=== PATIENT | male | born 1940 | race African-American/Black ===

== ENCOUNTER 2018-05-05 17:57 | Inpatient (IN) ==
[2018-05-05] MEDS ORDERED: SODIUM CHLORIDE 0.9% 1,000 ML IV STA ×2 (19:11→20:23)
[2018-05-05 19:19] LABS: Basophils % 0.2 % (0.0-0.8); Hematocrit 35.7 VOL% (42.0-52.0); Hemoglobin 12.3 GM/DL (14.0-18.0); Immature Granulocytes % 1.1 %; Immature Granulocytes Absolute 0.22 #; Lymphocytes # 0.3 10*3/uL (1.4-4.0); Lymphocytes % 1.6 % (21.2-54.2); Mean Corpuscular HGB Conc 34.5 GM/DL (32-36); Mean Corpuscular Hemoglobin 31 PG (27-34); Mean Corpuscular Volume 89.9 FL (87-102); Mean Platelet Volume 8.8 FL (9.6-12.0); Monocytes # 1.1 10*3/uL (0.11-0.8); Monocytes % 5.6 % (1.7-12.7); Neutrophils # 18.6 10*3/uL (1.4-7.4); Neutrophils % 91.5 % (38.7-73.9); Platelet Count 198 T/CUMM (130-400); Red Blood Count 3.97 MC/CUMM (3.8-5.5); Red Cell Distribution Width 13.7 % (9.3-17.3); White Blood Count 20.3 T/CUMM (4-12)
[2018-05-05 20:20] LABS: Band Neutrophils 3 % (0-10); Lymphocytes 1 % (20-55); Platelet Estimate Normal; Segmented Neutrophils 88 % (50-85); Total Cells Counted 100
[2018-05-05 20:22] LABS: Lactic Acid 2.5 MMOL/L (0.4-2.0)
[2018-05-05] MEDS ORDERED: CEFEPIME 2,000 MG in SODIUM CHLORIDE 0.9% 100 ML IV STA (20:24)
[2018-05-05] MEDS ORDERED: VANCOMYCIN INJ 1,000 MG in SODIUM CHLORIDE 0.9% 250 ML IV STA (20:25)
[2018-05-05] MEDS ORDERED: SODIUM CHLORIDE 0.9% 500 ML IV STA (20:26)
[2018-05-05 21:15] LABS: Albumin 2.9 G/DL (3.4-5.0); Blood Urea Nitrogen 21 MG/DL (7-18); Glucose 78 MG/DL (74-106); Osmolality,Calculated 265.5 MOS/KG (273-304); Sodium 132 MMOL/L (136-145); Total Protein 6.8 G/DL (6.4-8.3)
[2018-05-05 21:16] LABS: Potassium 4.1 MMOL/L (3.5-5.1)
[2018-05-05 21:46] LABS: Apearance,Urine CLOUDY (Clear); Bacteria,Urine Many /HPF (Few); Bilirubin,Urine Negative (Negative); Blood, Urine Moderate mg/dL (Negative); Glucose,Urine (UA) Negative (Negative); Ketones,Urine Negative (Negative); Mucus,Urine Many /LPF (Occasional); Nitrite,Urine Positive (Negative); Protein,Urine 30 MG/DL; RBC,Urine 28 /HPF (0-4); Urine Color Amber (Yellow); WBC,Urine 97 /HPF (0-6)
[2018-05-05] MEDS ORDERED: DOCUSATE SODIUM 100 MG CAPSULE PO PRN (21:47)
[2018-05-05] MEDS ORDERED: MORPHINE 4 MG/1 ML VIAL IV PRN (21:47)
[2018-05-05] MEDS ORDERED: diphenhydrAMINE CAP 25 MG CAPSULE PO PRN (21:47)
[2018-05-05] MEDS ORDERED: ONDANSETRON 4 MG/2 ML VIAL IV PRN (21:47)
[2018-05-05] MEDS ORDERED: ACETAMINOPHEN 325 MG TABLET PO PRN (21:47)
[2018-05-05 21:49] LABS: Alanine Aminotransferase 15 U/L (16-61); Alkaline Phosphatase 95 U/L (45-117); Aspartate Amino Transferase 14 U/L (0-37); Calcium 8.6 MG/DL (8.5-10.1)
[2018-05-06] MEDS: PIPERACILLIN/TAZOBACTAM 3,375 MG in SODIUM CHLORIDE 0.9% 100 ML IV SCH ×4 (01:48→15:50)
[2018-05-06] MEDS ORDERED: traZODone 50 MG TABLET PO PRN (02:19)
[2018-05-06] MEDS ORDERED: LORazepam 2 MG/1 ML VIAL IV ONE (02:39)
[2018-05-06 04:50] LABS: Basophils % 0.2 % (0.0-0.8); Hematocrit 34.4 VOL% (42.0-52.0); Hemoglobin 11.6 GM/DL (14.0-18.0); Immature Granulocytes % 1.1 %; Immature Granulocytes Absolute 0.14 #; Lymphocytes # 0.4 10*3/uL (1.4-4.0); Lymphocytes % 3.2 % (21.2-54.2); Mean Corpuscular HGB Conc 33.7 GM/DL (32-36); Mean Corpuscular Hemoglobin 30 PG (27-34); Mean Corpuscular Volume 89.6 FL (87-102); Mean Platelet Volume 8.6 FL (9.6-12.0); Monocytes # 0.1 10*3/uL (0.11-0.8); Monocytes % 0.6 % (1.7-12.7); Neutrophils % 94.9 % (38.7-73.9); Platelet Count 173 T/CUMM (130-400); Red Blood Count 3.84 MC/CUMM (3.8-5.5); Red Cell Distribution Width 13.8 % (9.3-17.3); White Blood Count 12.7 T/CUMM (4-12)
[2018-05-06] MEDS ORDERED: ZIPRASIDONE 20 MG/1 ML VIAL IM ONE (04:52)
[2018-05-06 05:07] LABS: Albumin 2.8 G/DL (3.4-5.0); Bilirubin,Total 0.7 MG/DL (0.2-1.0); Calcium 8.2 MG/DL (8.5-10.1); Osmolality,Calculated 269.2 MOS/KG (273-304); Potassium 3.7 MMOL/L (3.5-5.1); Total Protein 6.5 G/DL (6.4-8.3)
[2018-05-06] MEDS ORDERED: METOPROLOL TARTRATE 5 MG/5 ML VIAL IV ONE (05:32)
[2018-05-06 06:26] LABS: Band Neutrophils 6 % (0-10); Lymphocytes 3 % (20-55); Segmented Neutrophils 88 % (50-85); Total Cells Counted 100
[2018-05-06 06:27] LABS: Anisocytosis 1+; Ovalocytes 1+; Platelet Estimate Adequate
[2018-05-06] MEDS: SODIUM CHLORIDE 0.9% 1,000 ML IV SCH ×3 (06:40→23:30)
[2018-05-06] MEDS ORDERED: AMIODARONE INJ 150 MG in DEXTROSE 5% 100 ML IV ONE (07:04)
[2018-05-06] MEDS: PANTOPRAZOLE 40 MG TABLET PO SCH (11:15)
[2018-05-06] MEDS: DIVALPROEX SPRINKLE 125 MG CAPSULE PO SCH ×3 (11:15→21:01)
[2018-05-06] MEDS: VANCOMYCIN INJ 1,250 MG in SODIUM CHLORIDE 0.9% 250 ML IV SCH ×2 (11:20→23:29)
[2018-05-06] MEDS: ENOXAPARIN 40 MG/0.4 ML SYRINGE SUBCUT SCH (11:47)
[2018-05-06] MEDS ORDERED: ZIPRASIDONE 20 MG/1 ML VIAL IM PRN ×2 (18:44→18:45)
[2018-05-06] MEDS: DONEPEZIL 5 MG TABLET PO SCH ×2 (20:55→21:01)
[2018-05-06] MEDS: MEMANTINE 5 MG TABLET PO SCH ×2 (20:55→21:01)
[2018-05-06] MEDS: PARoxetine 10 MG TABLET PO SCH ×2 (20:55→21:01)
[2018-05-06] MEDS: OLANZapine 2.5 MG TABLET PO SCH ×2 (20:55→21:01)
[2018-05-07] MEDS: PIPERACILLIN/TAZOBACTAM 3,375 MG in SODIUM CHLORIDE 0.9% 100 ML IV SCH ×2 (01:27→06:00)
[2018-05-07] MEDS: VANCOMYCIN INJ 1,250 MG in SODIUM CHLORIDE 0.9% 250 ML IV SCH (08:05)
[2018-05-07] MEDS: PANTOPRAZOLE 40 MG TABLET PO SCH (08:06)
[2018-05-07] MEDS: DIVALPROEX SPRINKLE 125 MG CAPSULE PO SCH ×2 (08:06→20:29)
[2018-05-07] MEDS: ENOXAPARIN 40 MG/0.4 ML SYRINGE SUBCUT SCH (08:06)
[2018-05-07] MEDS ORDERED: LACTULOSE 20 GM/30 ML UDCUP PO ONE (09:34)
[2018-05-07] MEDS: DOCUSATE/SENNA 50-8.6 MG TABLET PO SCH (09:49)
[2018-05-07] MEDS: ERTAPENEM 1,000 MG in SODIUM CHLORIDE 0.9% 100 ML IV SCH (11:14)
[2018-05-07] MEDS: ACYCLOVIR 200 MG CAPSULE PO SCH ×2 (14:09→20:29)
[2018-05-07] MEDS: PARoxetine 10 MG TABLET PO SCH (20:29)
[2018-05-07] MEDS: MEMANTINE 5 MG TABLET PO SCH (20:29)
[2018-05-07] MEDS: DONEPEZIL 5 MG TABLET PO SCH (20:30)
[2018-05-07] MEDS: OLANZapine 2.5 MG TABLET PO SCH (20:30)
[2018-05-08] MEDS: SODIUM CHLORIDE 0.9% 1,000 ML IV SCH ×2 (00:27→11:44)
[2018-05-08 05:58] LABS: Basophils % 0.3 % (0.0-0.8); Eosinophils % 0.2 % (0.00-10.9); Hematocrit 36.6 VOL% (42.0-52.0); Hemoglobin 12.8 GM/DL (14.0-18.0); Immature Granulocytes % 0.8 %; Immature Granulocytes Absolute 0.08 #; Lymphocytes # 0.8 10*3/uL (1.4-4.0); Lymphocytes % 8.9 % (21.2-54.2); Mean Corpuscular Hemoglobin 30 PG (27-34); Mean Corpuscular Volume 86.9 FL (87-102); Mean Platelet Volume 8.9 FL (9.6-12.0); Monocytes # 0.7 10*3/uL (0.11-0.8); Monocytes % 7.4 % (1.7-12.7); Neutrophils # 7.8 10*3/uL (1.4-7.4); Neutrophils % 82.4 % (38.7-73.9); Platelet Count 191 T/CUMM (130-400); Red Blood Count 4.21 MC/CUMM (3.8-5.5); Red Cell Distribution Width 13.3 % (9.3-17.3); White Blood Count 9.5 T/CUMM (4-12)
[2018-05-08 06:30] LABS: Calcium 8.6 MG/DL (8.5-10.1); Osmolality,Calculated 264.2 MOS/KG (273-304); Potassium 3.5 MMOL/L (3.5-5.1); Total Protein 6.8 G/DL (6.4-8.3)
[2018-05-08] MEDS ORDERED: LACTULOSE 20 GM/30 ML UDCUP PO ONE (08:00)
[2018-05-08] MEDS: ENOXAPARIN 40 MG/0.4 ML SYRINGE SUBCUT SCH (09:58)
[2018-05-08] MEDS: DIVALPROEX SPRINKLE 125 MG CAPSULE PO SCH ×2 (09:58→20:27)
[2018-05-08] MEDS: DOCUSATE/SENNA 50-8.6 MG TABLET PO SCH (09:59)
[2018-05-08] MEDS: PANTOPRAZOLE 40 MG TABLET PO SCH (09:59)
[2018-05-08] MEDS: ACYCLOVIR 200 MG CAPSULE PO SCH ×3 (09:59→20:27)
[2018-05-08] MEDS: ERTAPENEM 1,000 MG in SODIUM CHLORIDE 0.9% 100 ML IV SCH (11:44)
[2018-05-08] MEDS ORDERED: DIVALPROEX SPRINKLE 125 MG CAPSULE PO SCH (16:53)
[2018-05-08 18:33] LABS: Apearance,Urine CLEAR (Clear); Bilirubin,Urine Negative (Negative); Blood, Urine Moderate mg/dL (Negative); Glucose,Urine (UA) Negative (Negative); Ketones,Urine Negative (Negative); Mucus,Urine Occasional /LPF (Occasional); Nitrite,Urine Negative (Negative); Protein,Urine Negative; RBC,Urine 9 /HPF (0-4); Urine Color Yellow (Yellow); Urine Specific Gravity 1.009 (1.001-1.035); WBC,Urine 3 /HPF (0-6)
[2018-05-08] MEDS: DONEPEZIL 5 MG TABLET PO SCH (20:27)
[2018-05-08] MEDS: PARoxetine 10 MG TABLET PO SCH (20:27)
[2018-05-08] MEDS: MEMANTINE 5 MG TABLET PO SCH (20:27)
[2018-05-08] MEDS: OLANZapine 2.5 MG TABLET PO SCH (20:27)
[2018-05-09] MEDS: SODIUM CHLORIDE 0.9% 1,000 ML IV SCH (05:35)
[2018-05-09 06:05] LABS: Basophils # 0.1 10*3/uL (0.0-0.2); Basophils % 0.6 % (0.0-0.8); Eosinophils # 0.1 10*3/uL (0.0-0.87); Eosinophils % 0.7 % (0.00-10.9); Hematocrit 35.5 VOL% (42.0-52.0); Hemoglobin 12.2 GM/DL (14.0-18.0); Immature Granulocytes % 2.2 %; Immature Granulocytes Absolute 0.18 #; Lymphocytes # 1.7 10*3/uL (1.4-4.0); Lymphocytes % 21.4 % (21.2-54.2); Mean Corpuscular HGB Conc 34.4 GM/DL (32-36); Mean Corpuscular Hemoglobin 30 PG (27-34); Mean Corpuscular Volume 86.6 FL (87-102); Mean Platelet Volume 9.1 FL (9.6-12.0); Monocytes # 0.6 10*3/uL (0.11-0.8); Monocytes % 7.3 % (1.7-12.7); Neutrophils # 5.5 10*3/uL (1.4-7.4); Neutrophils % 67.8 % (38.7-73.9); Platelet Count 200 T/CUMM (130-400); Red Cell Distribution Width 13.2 % (9.3-17.3); White Blood Count 8.1 T/CUMM (4-12)
[2018-05-09 06:21] LABS: Albumin 2.6 G/DL (3.4-5.0); Bilirubin,Total 0.6 MG/DL (0.2-1.0); Calcium 8.3 MG/DL (8.5-10.1); Osmolality,Calculated 259.7 MOS/KG (273-304); Potassium 3.2 MMOL/L (3.5-5.1); Total Protein 6.6 G/DL (6.4-8.3)
[2018-05-09] MEDS ORDERED: MAGNESIUM SULF RIDER 2 GM in PREMIX 1 EACH IV PRN (06:56)
[2018-05-09] MEDS ORDERED: POTASSIUM CHLORIDE RIDER 10 MEQ in PREMIX 1 EACH IV PRN (06:56)
[2018-05-09] MEDS ORDERED: MAGNESIUM SULF RIDER 4 GM in PREMIX 1 EACH IV PRN (06:56)
[2018-05-09] MEDS ORDERED: POTASSIUM PHOS/SOD PHOS POWDER 250 MG PACK PO ONE (07:30)
[2018-05-09] MEDS: ACYCLOVIR 200 MG CAPSULE PO SCH (08:52)
[2018-05-09] MEDS: DOCUSATE/SENNA 50-8.6 MG TABLET PO SCH (08:52)
[2018-05-09] MEDS: ENOXAPARIN 40 MG/0.4 ML SYRINGE SUBCUT SCH (08:52)
[2018-05-09] MEDS: DIVALPROEX SPRINKLE 125 MG CAPSULE PO SCH (08:52)
[2018-05-09] MEDS: PANTOPRAZOLE 40 MG TABLET PO SCH (08:52)
[2018-05-09 09:10] VITALS: BP 152/86
== END 2018-05-09 11:40 | DRG 690 ==
LOC: EDBD → EDUNIT# → N.ED 17:57 → N.EDINP 21:47 → N.5E 22:53
PROVIDERS: ADMIT Internal Medicine Infectious Disease; ATTEND Internal Medicine Infectious Disease

== ENCOUNTER 2020-05-05 07:23 | Inpatient (IN) ==
[2020-05-05] MEDS ORDERED: SODIUM CHLORIDE 0.9% 1,000 ML IV STA (07:42)
[2020-05-05] MEDS ORDERED: PANTOPRAZOLE 40 MG VIAL IV STA (07:42)
[2020-05-05] MEDS ORDERED: ONDANSETRON 4 MG/2 ML VIAL IV STA (07:42)
[2020-05-05 08:59] LABS: Basophils % 0.2 % (0.0-0.8); Eosinophils # 0.1 10*3/uL (0.0-0.87); Hematocrit 34.2 VOL% (42.0-52.0); Hemoglobin 10.8 GM/DL (14.0-18.0); Immature Granulocytes % 0.7 %; Immature Granulocytes Absolute 0.07 #; Lymphocytes # 1.6 10*3/uL (1.4-4.0); Lymphocytes % 15.2 % (21.2-54.2); Mean Corpuscular HGB Conc 31.6 GM/DL (32-36); Mean Corpuscular Volume 88.8 FL (87-102); Mean Platelet Volume 9.7 FL (9.6-12.0); Monocytes % 8.1 % (1.7-12.7); Neutrophils % 74.8 % (38.7-73.9); Platelet Count 227 T/CUMM (130-400); Red Blood Count 3.85 MC/CUMM (3.8-5.5); Red Cell Distribution Width 16.3 % (9.3-17.3); White Blood Count 10.3 T/CUMM (4-12)
[2020-05-05 09:17] LABS: INR 1.1; PT Patient Result 11.3 SECS (9.8-11.9); Partial Thromboplastin Time 28.8 SECS (23.9-33.8)
[2020-05-05 09:29] LABS: Alanine Aminotransferase 28 U/L (16-61); Albumin 2.7 G/DL (3.4-5.0); Alkaline Phosphatase 125 U/L (45-117); Aspartate Amino Transferase 20 U/L (0-37); Bilirubin,Total < 0.39 MG/DL (0.2-1.0); Blood Urea Nitrogen 22 MG/DL (7-18); Calcium 8.8 MG/DL (8.5-10.1); Estimated Glom Filtration Rate 90 ML/MIN; Glucose 95 MG/DL (74-106); Total Protein 7.7 G/DL (6.4-8.3)
[2020-05-05] MEDS ORDERED: LACTULOSE 20 GM/30 ML UDCUP PO PRN (10:27)
[2020-05-05] MEDS ORDERED: DEXTROSE 50% 25 GM/50 ML VIAL IV PRN (10:27)
[2020-05-05] MEDS ORDERED: GLUCAGON 1 MG VIAL IM PRN (10:27)
[2020-05-05] MEDS ORDERED: ONDANSETRON 4 MG/2 ML VIAL IV PRN (10:27)
[2020-05-05] MEDS ORDERED: ACETAMINOPHEN 325 MG TABLET PO PRN (10:27)
[2020-05-05 11:16] LABS: VLDL CHOLESTEROL 13.8 MG/DL
[2020-05-05] MEDS: DEXTROSE 5% NACL 0.45% 1,000 ML IV SCH ×2 (13:56→22:54)
[2020-05-05 15:33] LABS: Hematocrit 33.7 VOL% (42.0-52.0); Hemoglobin 10.5 GM/DL (14.0-18.0)
[2020-05-05] MEDS: PANTOPRAZOLE 40 MG VIAL IV SCH (20:22)
[2020-05-05 21:31] LABS: Hematocrit 33.1 VOL% (42.0-52.0); Hemoglobin 10.6 GM/DL (14.0-18.0)
[2020-05-06 05:25] LABS: Basophils % 0.3 % (0.0-0.8); Eosinophils # 0.2 10*3/uL (0.0-0.87); Eosinophils % 2.7 % (0.00-10.9); Hematocrit 29.8 VOL% (42.0-52.0); Hemoglobin 9.4 GM/DL (14.0-18.0); Immature Granulocytes % 0.7 %; Immature Granulocytes Absolute 0.04 #; Lymphocytes # 1.6 10*3/uL (1.4-4.0); Lymphocytes % 26.5 % (21.2-54.2); Mean Corpuscular HGB Conc 31.5 GM/DL (32-36); Mean Corpuscular Volume 89.2 FL (87-102); Mean Platelet Volume 9.9 FL (9.6-12.0); Monocytes % 10.3 % (1.7-12.7); Neutrophils % 59.5 % (38.7-73.9); Platelet Count 216 T/CUMM (130-400); Red Blood Count 3.34 MC/CUMM (3.8-5.5); Red Cell Distribution Width 16.2 % (9.3-17.3)
[2020-05-06 06:26] LABS: Calcium 8.5 MG/DL (8.5-10.1); Osmolality,Calculated 285.1 MOS/KG (273-304)
[2020-05-06] MEDS: PANTOPRAZOLE 40 MG VIAL IV SCH (08:11)
[2020-05-06 11:34] VITALS: BP 106/56
== END 2020-05-06 13:37 | DRG 377 ==
LOC: EDBD → EDUNIT# → N.ED 07:23 → N.EDINP 10:10 → SUATTDRO 10:10 → N.5E 12:32
PROVIDERS: ADMIT Internal Medicine; ATTEND Internal Medicine